=== PATIENT | male | born 1995 | race African-American/Black ===

== ENCOUNTER 2021-03-24 10:10 | Day surgery (SDC) | payer OTHER ==
[2021-03-24] VITALS (13 sets, daily range): BP systolic 129–152; BP diastolic 75–97
[~2021-03-24] VITALS: Ht 188 cm; Wt 120.1 kg
[~2021-03-24 10:10] MED LIST: BISA-155 PO; IBUPROFEN PO; famotidine 20mg tablet PO ONE; ringers solution, lacted 1,000 ML IV SCH
[2021-03-24] MEDS ORDERED: cefazolin/dext.iso 2gm/50ml IV ONE (10:56)
[2021-03-24] MEDS ORDERED: ceFAZolin/D5W- 1GM premix 50 ML IV ONE (10:59)
[2021-03-24] MEDS ORDERED: cloNIDine hcl/PF 100mcg/ml inj ONE (12:29)
[2021-03-24] MEDS ORDERED: MIDAZolam 1 MG/ML 5ML VIAL ONE (12:30)
[2021-03-24] MEDS ORDERED: fentaNYL /PF 50mcg/ml 5ml ampule ONE (12:44)
[2021-03-24] MEDS ORDERED: meperidine/PF 25mg/ml syringe IV PRN ×3 (12:50)
[2021-03-24] MEDS ORDERED: proCHLORperazine 10 MG/2 ml inj IV PRN (12:50)
[2021-03-24] MEDS ORDERED: acetaminophen 1,000mg/100ml IV 100 ML IV PRN (12:50)
[2021-03-24] MEDS ORDERED: ringers solution, lacted 1,000 ML IV SCH (12:50)
[2021-03-24] MEDS ORDERED: ketorolac trometh. 30mg/ml inj. IV ONE (12:50)
[2021-03-24] MEDS ORDERED: morphine 2 MG/ML inj. syringe IV PRN (12:50)
[2021-03-24] MEDS ORDERED: labetalol 20mg/4ml (5mg/ml) syringe IV PRN (12:50)
[2021-03-24] MEDS ORDERED: morphine 4 MG/ML inj SYRINge IV PRN (12:50)
[2021-03-24] MEDS ORDERED: hydrALAZINE 20mg/ml inj. IV PRN (12:50)
[2021-03-24] MEDS ORDERED: ondansetron/PF 4mg/2ml inj IV PRN (12:50)
[2021-03-24] MEDS ORDERED: ondansetron/PF 4mg/2ml inj ONE (12:52)
[2021-03-24] MEDS ORDERED: ROPIVAcaine 0.5% (5mg/ml) 30ml vial ONE (12:52)
[2021-03-24] MEDS ORDERED: dexamethasone sod phosphate 4mg/ml inj. ONE (12:52)
[2021-03-24] MEDS ORDERED: LIDOcaine 2% (20mg/ml) 5ml vial ONE (12:52)
[2021-03-24] MEDS ORDERED: propofol inj 20 ML IV ONE (12:52)
--- NOTE | 2021-03-24 14:25 | NUR ---
Received from OR via , accompanied by Anesthesiologist DR IBANEZ and report given by Anesthesiolgist. PT PRESENTS WITH 20G RIGHT HAND, RIGHT KNEE BANDAGES CLEAN AND DRY WITH QUIANA BAEZ. VSS. Addendum: 03/24/21 at 1436 by Jessica Kumar RN, RN Amended: Links added.
--- NOTE | 2021-03-24 16:05 | NUR ---
DC INSTRUCTIONS REVIEWED WITH PT AND WHO VERBALIZED UNDERSTANDING. PHOEBE ANDREWS'Latosha LINDSEY. PT WHEELED OUT IN WHEELCHAIR TO '[facility] TO BE TAKEN BACK TO [facility]. Addendum: 03/24/21 at 1638 by Jessica Kumar RN, RN Amended: Links added.
== END 2021-03-24 16:05 | disposition home or self-care (01) ==
LOC: PRE-OP 10:10 → EEVIPCON 12:30 → PRE-OP 16:05
PROVIDERS: ATTEND Orthopaedic Surgery
DX: S83.281A Other tear of lateral meniscus, current injury, right knee, initial encounter (principal); S83.511A Sprain of anterior cruciate ligament of right knee, initial encounter; G89.18 Other acute postprocedural pain; Z79.899 Other long term (current) drug therapy; Z86.16 Personal history of COVID-19; X58.XXXA Exposure to other specified factors, initial encounter; Y93.89 Activity, other specified; Y92.89 Other specified places as the place of occurrence of the external cause; Y99.8 Other external cause status
CPT/HCPCS: 29881; 29888; 64447; 76942; C1713; C1762; J0690; J0735; J1100; J1885; J2250; J2405; J2704; J2795; J3010; J3490; J7030; J7120; L1832; Z7506; Z7508; Z7512; A4215; A4618; A6449; A7000